=== PATIENT | female | born 1970 | race Caucasian/White ===

== ENCOUNTER 2024-04-21 12:57 | Inpatient (IN) ==
[2024-04-21 17:58] LABS: ABS Basophils 0.1 10^3/uL (0.0-0.1); ABS Eosinophils 0.2 10^3/uL (0.0-0.5); ABS Lymphocytes 1.2 10^3/uL (1.0-4.8); ABS Monocytes 0.9 10^3/uL (0.0-0.9); ABS Neutrophils 6.8 10^3/uL (1.5-7.6); ABS Nucleated RBC 0.02 10^3/ul; Eosinophil % 2.1 %; Hematocrit 34.1 % (35-45); Hemoglobin 11.6 g/dL (11.5-14.3); Lymphocyte % 12.9 %; Mean Corpuscular Hemoglobin 31.9 pg (27-33); Mean Corpuscular Hgb Conc 33.9 g/dL (31-36); Mean Corpuscular Volume 94.1 fL (80-97); Mean Platelet Volume 7.1 fL (7.5-11.2); Nucleated Red Blood Cells % 0.2 %/100WBC (0.0-0.8); Platelet Count 397 10^3/uL (150-450); Red Blood Count 3.62 10^6/uL (3.63-4.92); White Blood Count 9.3 10^3/uL (3.8-11.8)
[2024-04-21 18:36] LABS: Albumin 4.3 g/dL (3.2-5.2); Albumin/Globulin Ratio 1.7 (1-3); Calcium 9.7 mg/dL (8.6-10.3); Creatinine, Serum 0.85 mg/dL (0.51-0.95); Globulin 2.5 g/dL (2-4); Magnesium 2.2 mg/dL (1.9-2.7); Phosphorus 4.4 mg/dL (2.5-5.0); Potassium 4.6 mmol/L (3.5-5.0); Total Bilirubin 0.4 mg/dL (0.2-1.0); Total Protein 6.8 g/dL (6.4-8.9); eGFR CKD-EPI 80.9 (>60)
[2024-04-21] MEDS: Enoxaparin 40 MG/0.4 ML SYR SUBCUT SCH (20:57)
[2024-04-22 04:59] LABS: ABS Basophils 0.1 10^3/uL (0.0-0.1); ABS Eosinophils 0.4 10^3/uL (0.0-0.5); ABS Monocytes 0.8 10^3/uL (0.0-0.9); ABS Neutrophils 6.6 10^3/uL (1.5-7.6); Eosinophil % 4.5 %; Hematocrit 31.1 % (35-45); Hemoglobin 10.3 g/dL (11.5-14.3); Lymphocyte % 11.6 %; Mean Corpuscular Hemoglobin 31.3 pg (27-33); Mean Corpuscular Volume 94.8 fL (80-97); Platelet Count 356 10^3/uL (150-450); Red Blood Count 3.28 10^6/uL (3.63-4.92); Red Cell Distribution Width 15.9 % (12-17); White Blood Count 8.8 10^3/uL (3.8-11.8)
[2024-04-22 05:45] LABS: Albumin 3.9 g/dL (3.2-5.2); Albumin/Globulin Ratio 1.8 (1-3); Calcium 9.1 mg/dL (8.6-10.3); Creatinine, Serum 0.86 mg/dL (0.51-0.95); Globulin 2.2 g/dL (2-4); Magnesium 1.9 mg/dL (1.9-2.7); Phosphorus 3.6 mg/dL (2.5-5.0); Potassium 4.1 mmol/L (3.5-5.0); Total Bilirubin 0.4 mg/dL (0.2-1.0); Total Protein 6.1 g/dL (6.4-8.9); eGFR CKD-EPI 79.7 (>60)
[2024-04-22] MEDS ORDERED: Valsartan/HCTZ 320/12.5(NF) TAB PO SCH (10:00)
[2024-04-22] MEDS: Valsartan/HCTZ 320/12.5(NF) TAB PO SCH (14:20)
[2024-04-23 04:29] LABS: ABS Basophils 0.1 10^3/uL (0.0-0.1); ABS Eosinophils 0.7 10^3/uL (0.0-0.5); ABS Monocytes 0.9 10^3/uL (0.0-0.9); ABS Neutrophils 6.4 10^3/uL (1.5-7.6); Eosinophil % 7.3 %; Hematocrit 28.7 % (35-45); Hemoglobin 9.8 g/dL (11.5-14.3); Lymphocyte % 10.9 %; Mean Corpuscular Hemoglobin 32.2 pg (27-33); Mean Corpuscular Volume 94.8 fL (80-97); Mean Platelet Volume 7.2 fL (7.5-11.2); Platelet Count 348 10^3/uL (150-450); Red Blood Count 3.03 10^6/uL (3.63-4.92); Red Cell Distribution Width 16.1 % (12-17); White Blood Count 9.1 10^3/uL (3.8-11.8)
[2024-04-23 05:06] LABS: Creatinine, Serum 1.61 mg/dL (0.51-0.95); Magnesium 1.8 mg/dL (1.9-2.7); Potassium 4.6 mmol/L (3.5-5.0); eGFR CKD-EPI 37.6 (>60)
[2024-04-23 10:05] VITALS: BP 134/71
== END 2024-04-23 13:55 | disposition home or self-care (01) | DRG 199 ==
LOC: ICU 14:55
PROVIDERS: ADMIT Internal Medicine Pulmonary Disease; ATTEND Internal Medicine Pulmonary Disease

== ENCOUNTER 2024-05-10 22:21 | Observation (INO) ==
[2024-05-11] MEDS ORDERED: Sulfur Hexaflouride MICROSPHR 25 MG VIAL IV PRN (02:40)
[2024-05-11] MEDS: Enoxaparin 40 MG/0.4 ML SYR SUBCUT SCH (06:37)
[2024-05-11 07:02] LABS: ABS Basophils 0.1 10^3/uL (0.0-0.1); ABS Eosinophils 0.2 10^3/uL (0.0-0.5); ABS Lymphocytes 0.8 10^3/uL (1.0-4.8); ABS Monocytes 0.7 10^3/uL (0.0-0.9); ABS Neutrophils 6.5 10^3/uL (1.5-7.6); Hematocrit 28.5 % (35-45); Hemoglobin 9.7 g/dL (11.5-14.3); Lymphocyte % 10.1 %; Mean Corpuscular Hemoglobin 32.4 pg (27-33); Mean Corpuscular Hgb Conc 33.9 g/dL (31-36); Mean Corpuscular Volume 95.5 fL (80-97); Mean Platelet Volume 7.3 fL (7.5-11.2); Platelet Count 328 10^3/uL (150-450); Red Blood Count 2.98 10^6/uL (3.63-4.92); Red Cell Distribution Width 16.6 % (12-17); White Blood Count 8.3 10^3/uL (3.8-11.8)
[2024-05-11 07:28] LABS: Calcium 9.3 mg/dL (8.6-10.3); Creatinine, Serum 0.94 mg/dL (0.51-0.95); Potassium 4.5 mmol/L (3.5-5.0); Total Bilirubin 0.5 mg/dL (0.2-1.0); eGFR CKD-EPI 71.7 (>60)
[2024-05-11 07:29] LABS: Calcium 9.4 mg/dL (8.6-10.3); Creatinine, Serum 0.93 mg/dL (0.51-0.95); Potassium 4.5 mmol/L (3.5-5.0); eGFR CKD-EPI 72.6 (>60)
[2024-05-11] MEDS: Furosemide 40 mg/4 ml IV VIAL IV SLOW PU ONE (09:20)
[2024-05-11] MEDS: cloNIDine 0.1 MG PATCH 0.1 MG/24 HR 7 DAY PATCH TRANSDERM SCH (20:47)
[2024-05-12 05:45] LABS: Hematocrit 29.6 % (35-45); Hemoglobin 9.8 g/dL (11.5-14.3); Mean Corpuscular Hemoglobin 31.7 pg (27-33); Mean Corpuscular Hgb Conc 33.3 g/dL (31-36); Mean Corpuscular Volume 95.2 fL (80-97); Mean Platelet Volume 7.2 fL (7.5-11.2); Platelet Count 322 10^3/uL (150-450); Red Cell Distribution Width 16.1 % (12-17); White Blood Count 6.9 10^3/uL (3.8-11.8)
[2024-05-12 06:07] LABS: Calcium 9.6 mg/dL (8.6-10.3); Creatinine, Serum 1.22 mg/dL (0.51-0.95); Magnesium 1.9 mg/dL (1.9-2.7); Potassium 4.5 mmol/L (3.5-5.0); eGFR CKD-EPI 52.4 (>60)
[2024-05-12] MEDS ORDERED: cloNIDine 0.1 MG PATCH 0.1 MG/24 HR 7 DAY PATCH TRANSDERM SCH (09:00)
[2024-05-12 10:35] VITALS: BP 130/66
[2024-05-12] MEDS: Furosemide 20 mg/2 ml IV VIAL IV SLOW PU ONE (10:40)
== END 2024-05-12 13:15 | disposition home or self-care (01) ==
LOC: EDHOLD 22:21 → ED 22:21 → MEDTELE 05-11 21:52
PROVIDERS: ADMIT Internal Medicine; ATTEND Internal Medicine

== ENCOUNTER 2024-06-09 07:54 | Observation (INO) ==
[2024-06-09 08:53] LABS: ABS Basophils 0.1 10^3/uL (0.0-0.1); ABS Eosinophils 0.4 10^3/uL (0.0-0.5); ABS Lymphocytes 1.1 10^3/uL (1.0-4.8); ABS Monocytes 0.6 10^3/uL (0.0-0.9); ABS Neutrophils 7.7 10^3/uL (1.5-7.6); Eosinophil % 3.6 %; Hematocrit 35.6 % (35-45); Hemoglobin 11.9 g/dL (11.5-14.3); Lymphocyte % 10.9 %; Mean Corpuscular Hemoglobin 30.5 pg (27-33); Mean Corpuscular Hgb Conc 33.5 g/dL (31-36); Mean Corpuscular Volume 91.2 fL (80-97); Mean Platelet Volume 7.2 fL (7.5-11.2); Platelet Count 356 10^3/uL (150-450); Red Blood Count 3.91 10^6/uL (3.63-4.92); Red Cell Distribution Width 15.2 % (12-17); White Blood Count 9.8 10^3/uL (3.8-11.8)
[2024-06-09 09:04] LABS: Activated Partial Thrombo Time 29.6 seconds (26.0-38.0); INR 0.93 (0.85-1.14)
[2024-06-09 09:10] LABS: Calcium 10.5 mg/dL (8.6-10.3); Creatinine, Serum 1.46 mg/dL (0.51-0.95); eGFR CKD-EPI 42.2 (>60)
[2024-06-09] MEDS ORDERED: fentaNYL 100 mcg/2 ml 50 MCG/ML VIAL ONE ×3 (09:51→14:44)
[2024-06-09] MEDS ORDERED: Midazolam 5 mg/5 ml VIAL 1 mg/ml 5 ml VIAL (5 mg) ONE (09:51)
[2024-06-09] MEDS ORDERED: Iohexol 350 (CONTRAST) 100 ML PAK IV ONE (09:51)
[2024-06-09] MEDS ORDERED: Heparin 1,000 UNIT/ML 10 ml (10,000 UNITS) CATHLAB/DIALYSIS ONE (09:52)
[2024-06-09] MEDS ORDERED: Lidocaine 1% VIAL 10 MG/ML 30 ML VIAL ONE (09:52)
[2024-06-09] MEDS ORDERED: Iodixanol 320 (CONTRAST) 100 ML SDV ONE ×2 (09:52→11:51)
[2024-06-09] MEDS ORDERED: Heparin 2 UNITS/ML IVPREMIX 1,000 UNIT/500 ML BAG IV ONE (09:53)
[2024-06-09] MEDS ORDERED: Naloxone 0.4 mg VIAL 0.4 mg/ml 1 ml VIAL IV PUSH PRN (10:20)
[2024-06-09] MEDS ORDERED: Flumazenil 0.5 mg/5 ml 0.1 MG/ML 5 ml VIAL IV PRN (10:20)
[2024-06-09] MEDS ORDERED: Phenylephrine 40 mcg/mL 10mL (400mcg) SYRINGE ONE (10:42)
[2024-06-09] MEDS: NS 0.9% 1000 ml BAG 1,000 ML IV.FLUID IV SCH (15:39)
[2024-06-09] MEDS: fentaNYL 100 mcg/2 ml 50 MCG/ML VIAL IV SLOW PU ONE (15:43)
[2024-06-09] MEDS: Midazolam 10 mg/10 ml VIAL 1 mg/ml 10 ml VIAL (10 mg) IV SLOW PU ONE (15:43)
[2024-06-09] MEDS: NS 0.9% 1,000 ML IV SCH (16:55)
[2024-06-09] MEDS: Aspirin EC 81 mg TAB.EC (enteric coated) PO SCH (16:55)
[2024-06-10 11:27] VITALS: BP 114/73
[2024-06-10] MEDS ORDERED: Influenza Vaccine *TRI* 2024-25* 0.5 ML SYRINGE IM ONE (12:00)
== END 2024-06-10 11:09 | disposition home or self-care (01) ==
LOC: CHICATH 07:54 → ICU 15:42 → INTOOBSV 15:42
PROVIDERS: ADMIT Radiology Diagnostic Radiology; ATTEND Internal Medicine